=== PATIENT | male | born 1965 | race Caucasian/White ===

== ENCOUNTER → 2024-03-05 | Outpatient (CLI) | payer BC ==
[2024-03-05 16:01] VITALS: BP 136/88; PULSE 77; RESP 16; TEMP 97.7
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
== END ==
LOC: 3 N SLEEP 15:02
PROVIDERS: ATTEND Internal Medicine
DX: G47.33 Obstructive sleep apnea (adult) (pediatric) (principal); G47.10 Hypersomnia, unspecified; N40.0 Benign prostatic hyperplasia without lower urinary tract symptoms; Z98.890 Other specified postprocedural states; Z98.1 Arthrodesis status; Z87.828 Personal history of other (healed) physical injury and trauma
CPT/HCPCS: 99211

== ENCOUNTER → 2024-03-13 | Outpatient (CLI) | payer BC ==
--- NOTE | 2024-03-19 10:52 | P.PCN ---
Description of Procedure: CLINICAL: A home sleep apnea test has been done for confirmation of possible obstructive sleep apnea-hypopnea syndrome. DESCRIPTION OF PROCEDURE: RESULTS: Recording time was 7 hours 49 minutes. Evaluation time was 6 hours 57 minutes. Evaluation time is sufficient for making conclusion about results of the test. Raw data of sleep recording has been reviewed and is adequate. Respiratory channel showed 46 apneas and 119 hypopneas. Apnea-hypopnea index was 23.7 per hour, which included obstructive apnea index 2.2, central apnea index 3.9, mixed apnea index 0.6. Pulse rate in the range between minimum 47, maximum 156, average 67 by computer calculation. Lowest desaturation was 83%. IMPRESSION: 1. Moderate obstructive and central sleep apnea hypopnea syndrome. Please see other impressions from consultation. PLAN: 1. The patient should have PAP titration for correction of respiratory abnormallities during sleep. 2. Sleep hygiene with regular time in bed for at least 8 hours. 3. Watching weight. 4. No driving if feeling any sleepiness. Thank you very much for allowing me to participate in the management of your patient. Sincerely, Rogelio Laguerre MD, PhD, FAASM Diplomat of [employer] [employer] Sleep Medicine Board of [place] [employer] Medicine [employer] Worker of [facility] [place]
== END ==
LOC: 3 N SLEEP 16:22
PROVIDERS: ATTEND Internal Medicine
DX: G47.33 Obstructive sleep apnea (adult) (pediatric) (principal); G47.31 Primary central sleep apnea

== ENCOUNTER 2024-07-08 19:41 | Outpatient (CLI) | payer BC ==
--- NOTE | 2024-07-09 11:40 | P.PCN ---
Description of Procedure: CLINICAL: Titration with positive air pressure has been done for correction of respiratory abnormalities during sleep. DESCRIPTION OF PROCEDURE: The standard montage for clinical polysomnography included the electroencephalogram, the electrocardiogram, the mentalis surface electromyography and Lead II cardiography. The respiratory battery consisted of measurements of nasal /buccal air flow, pressure transducer measurements from the nose, thoracic and /or abdominal effort and intercostal surface electromyography. Video monitoring has been done to check for any parasomnia events. Nocturnal oxyhemoglobin saturations were obtained by finger oximetry. Step-foy titration with positive airway pressure was utilized to control respiratory events. Raw data of sleep recording has been reviewed and is adequate. RESULTS: Sleep efficiency was decreased to 79.3%. Latency to sleep onset was normal 16.0 minutes.]. Sleep architecture showed stage N1 was increased to 11.0%, Delta sleep was short 3.5%, REM sleep was increased to 30.7%. Heart rate was minimum 61 BPM, maximum 74 BPM, average 67 BPM. EMG showed 42.5 periodic limb movements per hour with 4.2 micriarousals per hour. PAP titration have been done with CPAP up to the pressure 9 cm H2O. The best results were at the pressure 9 cm H2O. Apnea hypopnea index reduced to 2.3. IMPRESSION: 1. Obstructive sleep apnea hypopnea syndrome on controle with PAP treatment. 2. Significant periodic limb movements have been documented. Please see other impressions from consultation. PLAN: 1. The patient will have treatment with positive air pressure equipment with the level of pressure AutoPap with a range of pressure 5-10 cm H2O and should use it every night for the whole night. 2. Watching weight. 3. Sleep hygiene with regular time in bed for at least 8 hours. 4. No driving if feeling any sleepiness. 5. I will see the patient for follow up visit to explain the results of the test, recommendations, check compliance with treatment and make any necessary adjustment related to mask fitting, pressure and humidification. 6. Please check iron profile including ferritin level. Low level of iron may increase risk for periodic limb movements Thank you very much for allowing me to participate in the management of your patient. Sincerely, Rogelio Laguerre MD, PhD, FAASM Diplomat of [employer] Sleep Medicine Board of [place] [employer] Medicine Joint Creaser of [facility] [place] cc: Michelle Ferrara MD
== END 2024-07-09 05:40 | disposition home or self-care (01) ==
LOC: 3 N SLEEP 19:41
PROVIDERS: ATTEND Internal Medicine
CPT/HCPCS: 95811

== ENCOUNTER → 2024-10-30 | Outpatient (CLI) | payer BC ==
[2024-10-30 15:03] VITALS: BP 154/111; PULSE 90; RESP 16; TEMP 97.8
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
== END ==
LOC: 3 N SLEEP 14:11
PROVIDERS: ATTEND Internal Medicine
DX: G47.33 Obstructive sleep apnea (adult) (pediatric) (principal); N40.0 Benign prostatic hyperplasia without lower urinary tract symptoms; M43.22 Fusion of spine, cervical region; Z04.1 Encounter for examination and observation following transport accident; Z87.01 Personal history of pneumonia (recurrent); Z98.890 Other specified postprocedural states
CPT/HCPCS: 99212

== ENCOUNTER → 2025-01-01 | Outpatient (CLI) | payer BC ==
[2025-01-01 11:51] VITALS: BP 139/89; PULSE 92; RESP 16; TEMP 98.3
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
== END ==
LOC: 3 N SLEEP 11:40
PROVIDERS: ATTEND Internal Medicine
DX: G47.33 Obstructive sleep apnea (adult) (pediatric) (principal); N40.0 Benign prostatic hyperplasia without lower urinary tract symptoms; Z99.89 Dependence on other enabling machines and devices; Z98.1 Arthrodesis status; Z87.01 Personal history of pneumonia (recurrent); Z87.828 Personal history of other (healed) physical injury and trauma; Z98.890 Other specified postprocedural states
CPT/HCPCS: 99212